=== PATIENT | male | born 1985 | race Caucasian/White ===

== ENCOUNTER 2025-03-26 17:26 | Emergency (ER) | payer MEDICAID ==
[~2025-03-26] VITALS: Ht 185.4 cm; Wt 116.0 kg
[2025-03-26 17:36] VITALS: PULSE 109; O2SAT 98
[2025-03-26] MEDS: LIDOCAINE HCL 1% 20ML VIAL INFIL ONE (20:30)
[2025-03-26] MEDS: AZITHROMYCIN 500 MG TABLET PO ONE (20:54)
[2025-03-26] MEDS: CEFTRIAXONE SODIUM 500MG VIAL IM ONE (20:54)
[2025-03-26] MEDS ORDERED: DOXY100T2 MT (21:55)
[2025-03-26 22:03] VITALS: BP 141/99; RESP 20; TEMP 36.5; O2SAT 100
== END 2025-03-26 22:05 | disposition home or self-care (01) ==
LOC: ER 17:26
DX: A64 Unspecified sexually transmitted disease (principal); I10 Essential (primary) hypertension; Z11.3 Encounter for screening for infections with a predominantly sexual mode of transmission
CPT/HCPCS: 96372; 99283; J0696; J3490; Z7610